=== PATIENT | female | born 1975 | race Caucasian/White ===

== ENCOUNTER 2021-06-03 13:38 | Emergency (ER) | payer OTHER, SELFPAY ==
--- NOTE | ~2021-06-03 | XR_ITS ---
EXAMINATION: XR wrist RT min 3V DATE: 06/03/2021 14:12 INDICATION: Ulnar-sided right wrist pain post injury TECHNIQUE: Posteroanterior, ulnar deviation, oblique, and lateral views of the right wrist were obtai ernst. COMPARISON: 12/21/2009 FINDINGS: 1-2 mm ulnar positive variance. Alignment is otherwise normal. No fracture. Joint spaces are normal. Soft tissues are unremarkable. IMPRESSION: 1. No acute osseous abnormality. Reviewed, dictated and finalized at location A.
[2021-06-03 13:50] VITALS: BP 142/90; PULSE 101; RESP 20; TEMP 36.7; O2SAT 97
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
== END 2021-06-03 14:46 | disposition home or self-care (01) ==
PROVIDERS: Emergency Provider Nurse Practitioner
DX: S29.012A Strain of muscle and tendon of back wall of thorax, initial encounter (principal); Y04.0XXA Assault by unarmed brawl or fight, initial encounter; S63.501A Unspecified sprain of right wrist, initial encounter; K21.9 Gastro-esophageal reflux disease without esophagitis
CPT/HCPCS: 73110; 99213; G0463

== ENCOUNTER 2021-08-17 10:14 | Outpatient (CLI) | payer OTHER, SELFPAY ==
--- NOTE | ~2021-08-17 | MM_ITS ---
EXAMINATION: MM screening jeremias BI w juan carlos HISTORY: Screening mammogram TECHNIQUE: Craniocaudal and mediolateral oblique 3-D tomosynthesis images were obtained and synthetic 2-D images were generated. CAD analysis was submitted and interpreted. COMPARISON: No prior mammogram is available for comparison at this institution. BREAST PARENCHYMAL COMPOSITION: There are scattered areas of fibroglandular density. FINDINGS: There is no evidence of suspicious mass, calcification, or architectural distortion to sugg est malignancy in either breast. There has been no suspicious interval change. IMPRESSION: 1. No mammographic evidence of malignancy. 2. Recommend routine screening mammography in one year. BI-RADS Category 1: Negative Reviewed, dictated and finalized at location A. ATIENT ADMITTING CLERK
== END 2021-08-17 10:15 | disposition home or self-care (01) ==
LOC: ANHIMG 10:16
PROVIDERS: PCP Family Medicine; Visit Provider Obstetrics & Gynecology
DX: Z12.31 Encounter for screening mammogram for malignant neoplasm of breast (principal)
CPT/HCPCS: 77063; 77067

== ENCOUNTER 2022-11-14 16:13 | Outpatient (CLI) | payer OTHER, SELFPAY ==
--- NOTE | ~2022-11-14 | MM_ITS ---
EXAMINATION: MM screening jeremias BI w juan carlos HISTORY: Screening mammogram TECHNIQUE: Craniocaudal and mediolateral oblique 3-D tomosynthesis images were obtained and synthetic 2-D images were generated. CAD analysis was submitted and interpreted. COMPARISON: 08/17/2021 bilateral screening mammogram BREAST PARENCHYMAL COMPOSITION: There are scattered areas of fibroglandular density. FINDINGS: There is no evidence of suspicious mass, calcification, or architectural distortion to sugg est malignancy in either breast. There has been no suspicious interval change. IMPRESSION: 1. No mammographic evidence of malignancy. 2. Recommend routine screening mammography in one year. BI-RADS Category 1: Negative Reviewed, dictated and finalized at location A.
== END 2022-11-14 16:14 | disposition home or self-care (01) ==
PROVIDERS: PCP Family Medicine; Visit Provider Obstetrics & Gynecology
DX: Z12.31 Encounter for screening mammogram for malignant neoplasm of breast (principal)
CPT/HCPCS: 77063; 77067

== ENCOUNTER 2024-01-10 08:18 | Outpatient (CLI) | payer OTHER, SELFPAY ==
--- NOTE | ~2024-01-10 | MM_ITS ---
EXAMINATION: MM screening jeremias BI w juan carlos HISTORY: Screening mammogram TECHNIQUE: Craniocaudal and mediolateral oblique 3-D tomosynthesis images were obtained and synthetic 2-D images were generated. CAD analysis was submitted and interpreted. COMPARISON: 11/14/2022, 08/17/2021 bilateral screening mammogram examinations BREAST PARENCHYMAL COMPOSITION: There are scattered areas of fibroglandular density. FINDINGS: There is no evidence of suspicious mass, calcification, or architectural distortion to sugg est malignancy in either breast. There has been no suspicious interval change. IMPRESSION: 1. No mammographic evidence of malignancy. 2. Recommend routine screening mammography in one year. BI-RADS Category 1: Negative Reviewed, dictated and finalized at location B.
== END 2024-01-10 08:19 | disposition home or self-care (01) ==
PROVIDERS: PCP Family Medicine; Visit Provider Obstetrics & Gynecology
DX: Z12.31 Encounter for screening mammogram for malignant neoplasm of breast (principal)
CPT/HCPCS: 77063; 77067

== ENCOUNTER 2024-11-26 16:00 | Outpatient (RCR) | payer OTHER, SELFPAY ==
--- NOTE | 2024-10-20 15:29 | OPREHPOC ---
Outpatient Therapy Plan of Care This is a Multidisciplinary Plan of Care that may contain components documented by all disciplines (PT, OT, and ST.) PT Problem 1 PT Problem #1 Knowledge Deficit PT Goal 1 Goal / Goal Update 1. Patient will perform independent HEP Target Visit 3 PT Problem 2 PT Problem #2 Pain PT Goal 1 Goal / Goal Update 1. No pain reported on pelvic exam 2. Pain no higher than 2/10 with prolonged sitting Target Visit 5 PT Problem 3 PT Problem #3 Impaired Strength PT Goal 1 Goal / Goal Update 1. Pelvic floor strength 4/5 to reduce incontinence 2. Pelvic floor endurance to 10 seconds to reduce incontinence Target Visit 5 PT Problem 4 PT Problem #4 Impaired Functional ADLs PT Goal 1 Goal / Goal Update 1. Patient will report no incontinence for 1 month Target Visit 5
--- NOTE | 2024-10-20 15:29 | PTOPEVAL1 ---
Assessment and note entered by Savanah Wolff DPT Evaluation Information Assessment Status Evaluation ICD-10 Condition Codes (PT) Weakness R53.1,Pelvic and perineal pain R10.2, Stress incontinence N39.3 Subjective Information Pt reports pelvic pain and cramping. Some radiating anteriorly. Has happened on and off over the years but is now worsening, patient wakes up at night from pain and it makes her feel that she has to void. Highest 8-9/10 and lowest 0/10. Tries ice and massage for pain. Somewhat unsure but thinks prolonged sitting increases her pain. Voids 4 times a day and 0-1 times at night. 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 Can hold urge to void up to 30 minutes. Denies pain with urination . BM 2 times a day, fecal incontinence once a month. Sometimes has pain with BM as well. No previous pain with pap smear or tampon. Pt has been 2 times, 2 vaginal deliveries. Minor tearing with both. 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 Returns to [place] in July. Pt has diabetes. Patient goal: see why I'm having pain Reported Pain Level Pain Score 0: Self Report Assessment PT Clinical Summary The patient is presenting to skilled therapy with pelvic pain and infrequent urinary/fecal incontinence. She presents with pain with palpation of pelvic floor and ischial tuberosity, decreased pelvic floor strength and endurance, and decreased abdominal strength which are contributing to her pain and incontinence. She will highly benefit from skilled therapy to address these impairments in order to safely return to prior level of function. Plan of Care Interventions Electrical Stimulation,Gait Training,Hot Pack/Cold Pack,Manual Therapy,Neuro Re-education,Patient/ Caregiver Education,Therapeutic Activities, Therapeutic Exercise PT Services Indicated Yes Treatment Frequency and 1 time a week for 5 weeks Duration These treatments will address the objective and functional deficits as defined above. The patient will be advanced safely and appropriately in order for the patient to progress towards his/her prior level of function. Additional exercises will be introduced and as well as a comprehensive home exercise program upon discharge, if needed, ?to ensure carryover of functional gains achieved in the clinic. This treatment plan has been reviewed and agreement upon by the patient.
--- NOTE | 2024-11-26 16:28 | OPREHPOC ---
Outpatient Therapy Plan of Care This is a Multidisciplinary Plan of Care that may contain components documented by all disciplines (PT, OT, and ST.) PT Problem 1 PT Problem #1 Knowledge Deficit PT Goal 1 Goal / Goal Update 1. Patient will perform independent HEP Target Visit 3 Progress Met PT Problem 2 PT Problem #2 Pain PT Goal 1 Goal / Goal Update 1. No pain reported on pelvic exam 2. Pain no higher than 2/10 with prolonged sitting Target Visit 5 Progress Met PT Problem 3 PT Problem #3 Impaired Strength PT Goal 1 Goal / Goal Update 1. Pelvic floor strength 4/5 to reduce incontinence 2. Pelvic floor endurance to 10 seconds to reduce incontinence update 11/26/24 1. met 2. improved to 5 Target Visit 5 Progress Partially Met PT Problem 4 PT Problem #4 Impaired Functional ADLs PT Goal 1 Goal / Goal Update 1. Patient will report no incontinence for 1 month update 11/26/24 1. patient does not remember last instance Target Visit 5 Progress Partially Met
--- NOTE | 2024-11-26 16:28 | PTOPPROGNS ---
Assessment and note entered by Savanah Wolff DPT Evaluation Information Assessment Status Progress ICD-10 Condition Codes (PT) Weakness R53.1,Pelvic and perineal pain R10.2, Stress incontinence N39.3 Subjective Information Pt reports she feels better with therapy. Pt reports no pain since October. Cannot remember any recent urinary incontinence. Voiding 7 times a day, sometimes wakes up 1 time. Assessment PT Clinical Summary The patient has made excellent progress in therapy . She reports no pain for over a month and no recent urinary incontinence. She demonstrates improved pelvic floor strength and endurance, as well as no pain with palpation of pelvic floor or L ischial tuberosity. Mild pain only to R ischial tuberosity. Due to patient's progress, tentative discharge is recommended at this time. She has been educated in thorough HEP and to follow up with PT and/or MD as needed. Plan of Care Interventions Electrical Stimulation,Gait Training,Hot Pack/Cold Pack,Manual Therapy,Neuro Re-education,Patient/ Caregiver Education,Therapeutic Activities, Therapeutic Exercise PT Services Indicated No Treatment Frequency and patient to call if pain increases in the next Duration month otherwise case will be discharged These treatments will address the objective and functional deficits as defined above. The patient will be advanced safely and appropriately in order for the patient to progress towards his/her prior level of function. Additional exercises will be introduced and as well as a comprehensive home exercise program upon discharge, if needed, ?to ensure carryover of functional gains achieved in the clinic. This treatment plan has been reviewed and agreement upon by the patient.
--- NOTE | 2024-12-29 11:34 | PTOPDC ---
Assessment and note entered by Savanah Wolff DPT Evaluation Information Assessment Status Discharge - Pt Not Present ICD-10 Condition Codes (PT) Weakness R53.1,Pelvic and perineal pain R10.2, Stress incontinence N39.3 Subjective Information - Assessment PT Clinical Summary Patient has not needed to schedule further visits- her case will be discharged this date. Plan of Care PT Services Indicated No
== END 2024-12-29 15:23 | disposition home or self-care (01) ==
LOC: ANHPT 16:00
PROVIDERS: PCP Family Medicine; Visit Provider Obstetrics & Gynecology
DX: N81.89 Other female genital prolapse (principal); R10.2 Pelvic and perineal pain
CPT/HCPCS: 97110; 97112; 97140; 97161; 97530

== ENCOUNTER 2025-03-10 14:49 | Outpatient (CLI) | payer OTHER, SELFPAY ==
--- NOTE | ~2025-03-10 | MM_ITS ---
EXAMINATION: MM screening jeremias BI w juan carlos HISTORY: Screening TECHNIQUE: Craniocaudal and mediolateral oblique 3-D tomosynthesis images were obtained and synthetic 2-D images were generated. CAD analysis was submitted and interpreted. COMPARISON: No prior mammogram is available for comparison at this institution. BREAST PARENCHYMAL COMPOSITION: Not dense: There are scattered areas of fibroglandular density. FINDINGS: There is no evidence of suspicious mass, calcification, or architectural distortion to sugg est malignancy in either breast. There has been no suspicious interval change. IMPRESSION: 1. No mammographic evidence of malignancy. 2. Recommend routine screening mammography in one year. BI-RADS Category 1: Negative Reviewed, dictated and finalized at location A.
--- OUTSIDE RECORDS SUMMARY | 2025-03-10 14:53 | XMS_ITS | Encounter Summary ---
Author Organization [facility] Facility Care Team Providers Care Thermocouple Tester Name Role Phone Boby Adams MD Primary Care Provid er Unknown, Notinfile Primary Care Provider Unavail able Boby Adams MD Primary Care Provid er Dyan Cruz Primary Care Provider [phone] Encounter Details Date Type Department Care Team (Latest Contact Info) Description 10/30/2017 Orders Only [facility] Provider, MD Nasrin [address] [place] [id number] Social History Tobacco Use Types Packs/Day Years Used Date Smoking Tobacco: Never Assessed Comments Unknown Sex and Gender Information Value Date Recorded Sex Assigned at Not on file Legal 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 Historical Provider Final Res ult documented in this encounter Visit Diagnoses Not on filedocumented in this encounter Additional Health Concerns Infection Onset Date Last Indicated Resolved Time COVID: Suspected 03/17/2021 03/17/2021 03/17/2021 10:59 PM CDT COVID19 03/17/2021 03/17/2021 03/31/2021 3:05 AM CDT COVID: Recovered Comment:Added based on recent COVID infection. 03/31/2021 04/04/2021 07/29/2021 3:[address] COVID: Suspected 07/09/2022 07/09/2022 07/09/2022 11:30 AM BULL WHEEL WORKER COVID: Suspected 08/09/2022 08/09/2022 08/09/2022 8:53 AM BULL WHEEL WORKER Influenza, adult 08/09/2022 08/09/2022 08/16/2022 3:05 AM BULL WHEEL WORKER COVID: Suspected 05/22/2023 05/22/2023 05/22/2023 4:19 PM CDT COVID19 05/22/2023 05/22/2023 06/01/2023 3:07 AM CDT COVID: Recovered Comment:Added based on recent COVID infection. 06/01/2023 07/11/2023 08/30/2023 3:[address] COVID: Suspected 07/16/2023 07/16/2023 07/16/2023 6:05 PM BULL WHEEL WORKER COVID: Suspected 07/16/2023 07/16/2023 07/17/2023 3:05 AM BULL WHEEL WORKER COVID: Suspected 07/16/2023 07/16/2023 07/17/2023 11:36 AM BULL WHEEL WORKER documented as of this encounter Care Teams Thermocouple Tester Relationship Specialty Start Date End Date Boby Adams MD [address] [place] [address] PCP - General 10/23/17 11/01/17 Unknown, Notinfile PCP - General 11/02/17 12/30/17 Boby Adams MD [address] [place] [address] PCP - General Family Medicine 12/31/17 10/28/24 Dyan Cruz PA [address] [place] [address] PCP - General Family Medicine 10/29/24 documented as of this encounter
--- OUTSIDE RECORDS SUMMARY | 2025-03-10 14:53 | XMS_ITS | Clinical Summary ---
Author Organization [facility] Address [facility] [place] [address] Care Team Providers Care Tool Grinder Operator Name Role Phone Dyan Cruz Primary Care Provider [phone] Allergies No known active allergies Medications FreeStyle Lite Meter kit TEST EVERY MORNING AND EVENING DIRECTED 1 Active freestyle 28 gauge lancets Test bid 100 each 11 2 Active Mirena IUD 2 Active lidocaine (LIDODERM) 5 %Indications:Acut e right-sided thoracic back pain Place 1 patch on the skin daily Apply to painful area 12 hours per day, remove for 12 hours. 30 patch 3 Active Flonase Allergy Relief 50 mcg/actuation nasal spray Administer 2 sprays into each nostril daily 3 Active MULTIVITAMIN ORAL Take by mouth Active FreeStyle Lite Strips strip USE TO TEST TWICE A DAY 100 strip 1 4 Active buPROPion XL (WELLBUTRIN XL) 150 mg 24 hr tablet TAKE 1 TABLET EVERY MORNING 90 tablet 3 5 Active metFORMIN XR (GLUCOPHAGE XR) 500 mg 24 hr tabletIndications :Uncontrolled type 2 diabetes mellitus with hyperglycemia (HCC) Take 1 tablet (500 mg total) by mouth daily with dinner 90 tablet 3 5 Active Jardiance 10 mg tablet TAKE 1 TABLET DAILY 90 tablet 3 5 Active Active Problems Problem Noted Date Diagnosed Date Herniated lumbar intervertebral disc 12/31/2024 Overview (12/31/2024): MRI requested from [facility]. Rx Motrin 800mg tid #45 RF1. Avoid prolonged activities - sitting, standing, etc. F/u with PCM @ [facility]. KEVIN (generalized anxiety disorder) 11/11/2024 Assessment & Plan (12/31/2024 8:25 AM CDT): Chronic and controlled. Continue Wellbutrin. Assessment & Plan (11/11/2024 8:30 AM CDT): Routine adult health maintenance 11/10/2024 Overview (01/16/2025): Health Maintenance: -PCV20: 07/13/2023 -Tdap vaccine: 2022 -Influenza vaccine: due -Shingles vaccine: 12/11/24 -Colonoscopy: 03/14/2022 (3 year recall), scheduled with GI Dr. Yusuf [facility]: 07/10/2022 -Last Mammogram: 01/10/2024, scheduled at [facility] -Last DEXA: N/A -Last eye exam: 01/13/25 -Last MHA: N/A Assessment & Plan (12/31/2024 8:26 AM CDT): Health Maintenance: -PCV20: 07/13/2023 -Tdap vaccine: 2022 -Influenza vaccine: due in Fall -Shingles vaccine: 12/11/24 -Colonoscopy: 03/14/2022 (3 year recall), scheduled with [facility]: 07/10/2022 -Last Mammogram: 01/10/2024, scheduled at [facility] -Last DEXA: N/A -Last eye exam: scheduled -Last MHA: N/A First dose of Shingrix administered today. She has her mammogram, colonoscopy, eye exam all scheduled. Labs reviewed today. BMI 28.0-28.9,adult 07/13/2023 Assessment & Plan (07/13/2023 8:01 AM LNA): Encouraged to restart regular exercise routine. Continue healthy diet. Controlled type 2 diabetes m ellitus without complication, without long-term current use of insulin 08/24/2022 Assessment & Plan (12/31/2024 8:25 AM CDT): I reviewed and discussed labs with the patient today. Most recent A1c: 6.4 Will check urine microalbumin annually. Patient not currently on a statin. Discussed LDL goal of under 70. She will work on lifestyle measures to improve LDL, currently at 84. Will recheck and discuss starting statin if not at goal. Patient not currently on MELINDA inhibitor or Arb. Will discuss at a follow-up visit. Recommend baby aspirin daily, 81mg. BP Goal < 130/85. Due to side effects, will decrease metformin to once daily in the evening. Continue Jardiance as prescribed. Diabetic eye exam annually. Monofilament foot exam annually. Check feet daily for ulcers/lesion/sores. Check blood sugars daily (fasting in am and 2 hrs after meal as needed). Goals fasting < 110-120. 2 hrs after meals < 140-160. Encourage healthy, low carbohydrate diet and CV exercise five times a week for 30 mins recommended. Rchehck A1c in 3 months. RTC 6 months. Assessment & Plan (11/11/2024 8:30 AM CDT): Assessment & Plan (07/13/2023 8:00 AM LNA): Chronic. Controlled A1c at goal of less than 7. Blood sugars have increased slightly. Advised patient to continue monitoring and notify for persistent fasting blood sugars above 130 or 2 hour postprandial blood sugars above 150. - continue metformin 500 twice daily and Jardiance 10 mg daily - schedule annual appointment with Dr. Admas and have A1c checked - continue to keep log until annual appointment Cervical pain (neck) 05/29/2017 Resolved Problems Problem Noted Date Diagnosed Date Resolved Date Uncontrolled type 2 diabetes mellitus with hyperglycemia 01/01/2023 11/10/2024 Recurrent major depressive d isorder, in full remission 09/25/2022 11/11/2024 Cervical disc disorder with radiculopathy 05/31/2017 09/09/2018 Encounters Date Type Department Care Team Description 01/05/2025 Results Follow-Up [facility] Family Medicine [address] [place] [phone] Dyan Cruz PA Extra Specimen, CFVANTAGE(R) CYSTIC FIBROSIS EXPANDED SCR Blood 12/31/2024 7:30 AM CDT Office Visit [facility] Family Medicine [address] [phone] Dyan Cruz PA Routine adult health maintenance (Primary Dx); Controlled type 2 diabetes mellitus without complication, without long-term current use of insulin (HCC); KEVIN (generalized anxiety disorder); Screening for cystic fibrosis; Need for vaccination; Viral wart on finger from Last 3 Months Immunizations Immunization Administration Dates Next Due COVID-19 MRNA (MODERNA) .5 M L (50 MCG) VACCINE (12 YEARS AND UP) 06/18/2023 Hep A, Adult 02/16/2004 Influenza LAIV (Nasal) 06/26/2014,06/20/2013 Influenza, Quadrivalent, Malorie l Culture-based MDCK, Preservative Free, Antibiotic Free, Intramuscular 06/18/2023 Influenza, Quadrivalent, Spl it, Preservative Free, Intramuscular 08/14/2021,08/13/2020,09/13/2019,07/24,06/28/2015 Influenza, Split 07/23/2010 Influenza, Trivalent, Cell Culture-based MDCK, Preservative Free, Antibiotic Free, Intramuscular 07/07/2017 Influenza, Trivalent, Preser vative Free, Intramuscular 06/03/2024,06/03/2017,08/08/2016 Influenza, Unspecified 08/24/2022(Deferr ed: Patient Refused),08/09/2022(Deferred: Patient Refused),07/11/2022(Deferred: Patient Refused),06/03/2022,06/03/2022(Deferre d: Patient Refused),08/03/2021 Influenza, Whole 08/04/2003 MMR 01/23/2018,04/07/2014 Moderna SARS-CoV-2 Monovalen t Vaccination (12+ YRS) 10/03/2021,11/12/2020,10/15/2020 PPD TEST 02/16/2004 Pneumococcal Conjugate Pcv20 07/13/2023 Td, adsorbed 02/16/2004 Tdap 04/03/2023, 2(Deferred: Patient Refused),04/07/2014 Typhoid Inactivated 01/23/2018 ZOSTER Recombinant 12/31/2024 Surgical History Surgery Date Site/Laterality Comments LUMBAR FUSION Arthrodesis Lumbar - (Added by TW Conv) CO CHOLECYSTECTOMY Cholecystectomy - (Added by TW Conv) CO APPENDECTOMY Appendectomy - (Added by TW Conv) Medical History Medical History Date Comments Cervical pain (neck) 05/29/2017 Diabetes mellitus (HCC) Anxiety Family History Medical History Relation Name Comments Cancer Father Richardson Cancer Maternal Grandfather Grandfather Cancer - Relation: Grandfather (Added by TW Conv) Diabetes Maternal Grandfather Grandfather Diabete s Mellitus - Relation: Grandfather (Added by TW Conv) Arthritis Mother Karime Cancer Mother Karime Diabetes Mother Karime Diabetes Mellit us - (Added by TW Conv) Hypertension Mother Karime Heart attack Mother's Sister Aunt Michelle Diabetes Other Diabetes Mellit us - Relation: Grandmother (Added by TW Conv) Relation Name Status Comments Father Richardson Maternal Grandfather Grandfather Mother Karime Mother's Sister Aunt Michelle Other Social History Tobacco Use Types Packs/Day Years Used Date Smoking Tobacco: Never Smokeless Tobacco: Never Tobacco Cessation:Counseling Given: Not Answered Alcohol Use Standard Drinks/Week Comments No 0 (1 standard drink = 0.6 oz pur e alcohol) AUDIT-C Answer Date Recorded Q1: How often do you have a drink containing alc ohol? Monthly or less 08/31/2023 Q2: How many drinks containi ng alcohol do you have on a typical day when you are drinking? 1 or 2 08/31/2023 Q3: How often do you have si x or more drinks on one occasion? Never 08/31/2023 PHQ-2 Answer Date Recorded PHQ-2 Total Score (If total score is 3 or more points, staff should administer the PHQ-9) 0 12/31/2024 PHQ-9 Answer Date Recorded PHQ-9 Total Score 0 12/31/2024 Comments No Sex and Gender Information Value Date Recorded Sex Assigned at Not on file Legal Sex Female 1:55 AM LNA Gender Identity Female 08/11/2021 12:08 PM LNA Sexual Orientation Straight 08/11/2021 12 :08 PM LNA Occupation Industry Job Start Date Job End Date teacher Not on file Not on file Not on file Obstetrics History Last Filed Vital Signs Vital Sign Reading Time Taken Comments Blood Pressure 126/78 12/31/2024 7:33 AM CDT Pulse 90 12/31/2024 7:33 AM CDT Temperature 36.6 C (97.9 F) 12/31/2024 7:33 AM CDT Respiratory Rate 18 12/31/2024 7:33 AM CDT Oxygen Saturation 99% 12/31/2024 7:33 AM CDT Inhaled Oxygen Concentration - - Weight 85.7 kg (189 lb) 12/31/2024 7:33 AM CDT Height 175.3 cm (5' 9) 12/31/2024 7:33 AM CDT Body Mass Index 27.91 12/31/2024 7:33 AM CDT Plan of Treatment Health Maintenance Due Date Last Done Comments Hepatitis C Screening 1975 Hepatitis B Screening 1991 Covid-19 Vaccine (2023- 5 season) 2024 06/18/2023, 10/03/2021, 11/12/2020, Additional history exists Breast Cancer Screening-Mammogram 01/09/2025 01/10/2024, 11/14/2022, 08/17/2021, Additional history exists Zoster Vaccine (2 of 2) 02/25/2025 12/31/2024 Colon Cancer Screening-Colonoscopy 03/14/20252021, 04/09/2018 Influenza Vaccine (#1) 2025 , 06/18/2023, 06/03/2022, Additional history exists Hemoglobin A1C 05/11/2025 11/08/2024, 08/0 03/2024, 10/06/2023, Additional history exists Albumin Creatinine Ratio, Urine 11/08/2025 11/08/2024, 10/06/2023, 02/10/2023, Additional history exists Lipid Panel 11/08/2025 11/08/2024, 02/0 11/2023, 02/10/2023, Additional history exists eGFR 11/08/2025 11/08/2024, 02/0 11/2023, 07/09/2022, Additional history exists Depression Screening 12/31/2025 12/31/2024, 12/31/2024, 11/11/2024, Additional history exists Foot Exam 12/31/2025 12/31/2024, 08/04, 08/31/2023, Additional history exists Regular Well Visit/Exam 18-64 12/31/2025, 08/31/2023, 08/24/2022, Additional history exists Dilated Eye Exam 01/13/2026 01/13/2025, 09/2022, 04/06/2022, Additional history exists Cervical Cancer Screening 07/10/2027 07/10/2022 DTaP/Tdap/Td Vaccine (3 - Td or Tdap) 04/03/2033 04/03/2023, 04/07/2014, 02/16/2004 Pneumococcal vaccine <65 Completed 07/13/2023 Medical Devices Implanted Type Area Termite Inspector Device Identifier Shelf Expiration Date Model / Serial / Lot Fusion Spine Cervical Procedures Procedure Name Priority Date/Time Associated Diagnosis Comments HM DIABETES EYE EXAM Routine 01/13/2025 2:42 PM CDT EXTRA SPECIMEN Routine 01/12/2025 1:08 PM CDT CFVANTAGE(R) CYSTIC FIBROSIS EXPANDED SCR Routine 01/12/2025 1:08 PM CDT Screening for cystic fibrosis EGFR Routine 11/08/2024 9:32 AM LNA Controlled type 2 diabetes mellitus without complication, without long-term current use of insulin (HCC) HEMOGLOBIN A1C Routine 11/08/2024 9:32 AM LNA Controlled type 2 diabetes mellitus without complication, without long-term current use of insulin (HCC) LIPID PANEL Routine 11/08/2024 9:32 AM LNA Controlled type 2 diabetes mellitus without complication, without long-term current use of insulin (HCC) ALBUMIN CREATININE RATIO, URINE Routine 11/08/2024 9:32 AM LNA Controlled type 2 diabetes mellitus without complication, without long-term current use of insulin (HCC) MAMMOGRAPHY Routine 01/10/2024 PAP SMEAR WITH HPV Routine 07/10/2022 COLONOSCOPY Routine 03/14/2022 4:00 PM CDT from Last 3 Months or Most Recently Relevant to Health Maintenance Results * DIABETES EYE EXAM (01/13/2025 2:42 PM CDT) SCRIBED DIABETIC DILATED EYE EXAM Normal us Historical Provider MD HEALTH MAINTENANCE Final Result * Extra Specimen (01/12/2025 1:08 PM CDT) Extra Tube Received [facility] Comment: An extra specimen was received with no test requested. The specimen will be maintained in storage in case additional testing is needed. Please call the client service department for further assistance. Specimen Type Received 2Serum Separator (SST) [facility] Comment: NO COLLECTION DATE RECEIVED. WE HAVE USED THE DATE THE SPECIMEN WAS RECEIVED BY THIS LABORATORY THE COLLECTION DATE. IF THIS IS INCORRECT, PLEASE CONTACT CLIENT SERVICES. PHONE NUMBER: [phone] 01/04/2025 4:2 3 AM CDT Dyan MINOR LAB BLOOD ORDERABLES Diana l Result [facility] [id number] [place] [address] * (ABNORMAL) CFVANTAGE(R) CYSTIC FIBROSIS EXPANDED SCR Blood (01/12/2025 1:08 PM CDT) Tumor type drugs #8 NG [facility], Clinical trials #6 POSITIVE( A) [facility], Comment:HETEROZYGOUS FOR THE delta F508 MUTATION test, interpretation SEE NOTE [facility], Comment: This individual has one copy of a cystic fibrosis (CF) mutation, consistent with being an unaffected CF carrier. This specimen is negative for the other CF mutations tested.* This result does not rule out a diagnosis of CF. The risk for mutations that cause CF other than the ones tested depends greatly on family history, clinical presentation, and ethnicity. Laboratory results and submitted clinical information reviewed by Jeremiah Thomas, PhD. [facility]. test, additional SEE NOTE [facility], Comment: This assay detects the CF mutations listed below, including the twenty-three core mutations recommended by the [place] [employer] (ACMG) and the [place] [employer] of Obstetricians and Gynecologists (ACOG) for population-based CF carrier screening. While the additional mutations detected in this assay are rare in the general [place] population, the scientific and medical literature indicates that these mutations are associated with CF (Ruthie Beatrice, 2013, 45:1160-7) and may have increased prevalence in some ethnic groups (Clin Chem, 57:841-8). The status of the intron 9 (formerly intron 8) polyT tract is reported only when the R117H mutation is detected. The mutations are detected by multiplex-polymerase chain reaction (PCR) amplification of specific CF gene regions, followed by nucleotide sequence analysis on a massively parallel sequencing platform. Although rare, false positive or false negative results may occur. All results should be interpreted in the context of clinical findings, relevant history, and other laboratory data. Health care providers, please contact your local [facility] genetic counselor or call at [facility] ([phone]) for assistance with interpretation of these results. DIAGNOSIS: SEE NOTE [facility], Comment: M1V (c.1A>G), CFTRdele2,3, Q39X (c.115C>T), 296+2T>A (c.164+2T>A), E60X (c.178G>T), P67L (c.200C>T), R75X (c.223C>T), G85E (c.254G>A), 394delTT (c.262delTT), G91R (c.271G>A), 405+1G>A (c.273+1G>A), 406-1G>A (c.274-1G>A), E92K (c.274G>A), E92X (c.274G>T), Q98X (c.292C>T), 444delA (c.313delA), 457TAT>G (c.325delTATinsG), D110H (c.328G>C), R117C (c.349C>T), R117H (c.350G>A), Y122X (c.366T>A), 574delA (c.442delA), 621+1G>T (c.489+1G>T), 663delT (c.531delT), G178R (c.532G>A), 711+1G>T (c.579+1G>T), 711+3A>G (c.579+3A>G), 711+5G>A (c.579+5G>A), 712-1G>T (c.580-1G>T), H199Y (c.595C>T), P205S (c.613C>T), L206W (c.617T>G), Q220X (c.658C>T), 519dnx47 (c.883ceg23), 935delA (c.803delA), 936delTA (c.805delAT), Q670efy (c.933delCTT), 1078delT (c.948delT), G330X (c.988G>T), R334W (c.1000C>T), I336K (c.1007T>A), T338I (c.1013C>T), S341P (c.1021T>C), 1154insTC (c.1022insTC), 1161delC (c.1029delC), R347P (c.1040G>C), R347H (c.1040G>A), R352Q (c.1055G>A), 1213delT (c.1081delT), 1248+1G>A (c.1116+1G>A), 1259insA (c.1127insA), 1288insTA (c.1153insAT), W401X (c.1202G>A or c.1203G>A), 1341+1G>A (c.1209+1G>A), 5671clk9 (c.1329insAGAT), A455E (c.1364C>A), 1525-1G>A (c.1393-1G>A), S466X (c.1397C>A or c.1397C>G), L467P (c.1400T>C), 1548delG (c.1418delG), G480C (c.1438G>T), S489X (c.1466C>A), S492F (c.1475C>T), 1609delCA (c.1477delCA), Q493X (c.1477C>T), I183acy (c.1519delATC), O600xaw (c.1521delCTT), 1677delTA (c.1545delTA), V520F (c.1558G>T), C524X (c.1572C>A), Q525X (c.1573C>T), 1717-1G>A (c.1585-1G>A), 1717-8G>A (c.1585-8G>A), G542X (c.1624G>T), S549R (c.1645A>C or c.1647T>G), S549N (c.1646G>A), G551D (c.1652G>A), Q552X (c.1654C>T), R553X (c.1657C>T), A559T (c.1675G>A), R560K (c.1679G>A), R560T (c.1679G>C), 1811+1.6kbA>G (c.1679+1.6kbA>G), 1812-1G>A (c.1680-1G>A), P574H (c.1721C>A), D579G (c.1736A>G), E585X (c.1753G>T), 1898+1G>T(c.1766+1G>T), 1898+1G>A (c.1766+1G>A), 1898+3A>G (c.1766+3A>G), 1898+5G>T (c.1766+5G>T), 2043delG (c.1911delG), 5462nvw7>A (c.1382erc2wtsY),7193wqj18qct5 (c.7861epx39jwvRLVMF), 2108delA (c.1975delA), 2143delT (c.2011delT), 2183AA>G (c.2051delAAinsG), 2184insA (c.205insA), 2184delA(c.2052delA), R709X (c.2125C>T), K710X (c.2128A>T), 2307insA (c.2175insA),L732X (c.2195T>G), 2347delG (c.2215delG), R764X (c.2290C>T), 2585delT (c.2453delT), E822X (c.2464G>T), 2622+1G>A (c.2490+1G>A), E831X (c.2491G>T),W846X (c.2537G>A or c.2538G>A), R851X (c.2551C>T), 2711delT (c.2583delT), 2789+5G>A (c.2657+5G>A), Q890X (c.2668C>T), 2869insG (c.2737insG), L927P (c.2780T>C), S945L (c.2834C>T), 3007delG (c.2875delG), G970R (c.2908G>C), 3120G>A(c.2988G>A), 3120+1G>A (c.2988+1G>A), 3121-1G>A (c.2989-1G>A), 3171delC (c.3039delC), 0822zha7 (c.3067delATAGTG), 3272-26A>G (c.3140-26A>G), Z3758M (c.3194T>C), O3634D (c.3196C>T), Y3968J (c.3197G>A), U8535V (c.3230T>C), Z3762R (c.3266G>A), F1730D (c.3276C>A or c.3276C>G), A6842G (c.3278T>C), L9768L (c.33 2T>A), N2473S (c.3310G>T), S9109W (c.3382A>T), O4803C (c.3435G>A), P8507H (c.3472C>T), S2033D (c.3484C>T), 3659delC (c.3528delC), 4696xpm6 (c.3535delACCA), C8769C (c.3587C>G), T1503E (c.3611G>A or c.3612G>A), 3791delC (c.3659delC), 3821delT (c.3691delT), U3941Q (c.3700A>G), H6940R (c.3712C>T), 3849+10kbC>T (c.3717+36980J>T), O1963X (c.3731G>A),3876delA (c.3744delA), T7854A (c.3752G>A), F5492W (c.3764C>A), 3905insT (c.3773insT), D2251V (c.3846G>A), M0153N (c.3848G>T), 4005+1G>A (c.3873+1G>A), 4016insT (c.3884insT), W1705U (c.3909C>G), G9184U (c.3937C>T), FFYFgsvb47,23, 4209TGTT>AA (c.4077delTGTTinsAA), 4382delA (c.4251d lA) This test was developed and its analytical performance characteristics have been determined by [facility]. It has not been cleared or approved by the FDA. This assay has been validated pursuant to the CLIA regulations and is used for clinical purposes. For additional information, please refer to http://education.[employer].Pythian/faq/BQF030 (This link is being provided for information/educational purposes only.) Blood 01/04/2025 4:2 3 AM CDT Dyan [facility] LAB MICROBIOLOGY - [facility] L ORDERABLES Final Result [facility], [address] [place] [address] * eGFR (11/08/2024 9:32 AM LNA) eGFR >90 >=60 mL/min/1. 73 m2 Comment: Interpretive Data Reference Interval Normal >/= 90 mL/min/1.73m2 Mildly decreased* 60 - 89 mL/min/1.73m2 Mildly to moderately decreased 45 - 59 mL/min/1.73m2 Moderately to severely decreased 30 - 44 mL/min/1.73m2 Severely decreased 15 - 29 mL/min/1.73m2 Kidney Failure < 15 mL/min/1.73m2 *Relative to young adult level Estimated glomerular filtration rate is determined by the 2020 CKD-EPI equation recommended by the National Kidney Foundation (A Unifying Approach to GFR Estimation: Recommendations of the NKF-ASK Task Force on Reassessing the Inclusion of Race in Diagnosing Kidney Disease, JASN 2020). The CKD-EPI equation should not be used for patients with unstable renal function and has not been validated in children and those over 70. Current interpretive data was last reviewed 2021. Testing performed by: [address] [address] Blood 11/08/2024 9:32 AM LNA 11/08/2024 11:51 AM LNA Dyan MIN[facility] LAB BLOOD ORDERABLES Diana l Result Performing Organization Address [facility] Co de Phone Number [address] [place] [address] * Albumin Creatinine Ratio, Urine (11/08/2024 9:32 AM LNA) Albumin Ur <12.0 mg/L Comment: Interpretive Data No reference range established. Current interpretive data was last revised 2019. Testing performed by: [address] [address] Creatinine Ur 116.0 mg/dL ARIANNA Comment: Interpretive Data No reference range established. Current interpretive data was last revised 2019. Testing performed by: [address] [address] Albumin Creatinine Ratio, Ur <10 1 - 29 mg/g ARIANNA Comment:Testing performed by : [address] [address] Urine 11/08/2024 9:32 AM LNA 11/08/2024 10:09 AM LNA Dyan [facility] LAB URINE ORDERABLES Diana l Result Performing Organization Address [facility] Co de Phone Number [place] [phone] [facility] [place] [address] * (ABNORMAL) Hemoglobin A1c (11/08/2024 9:32 AM LNA) Hgb A1C 6.4(H) 4.0 - 5.6 % Comment:Testing performed by : [address] [address] Estimated Average Glucose 137 mg/dL ARIANNA SAINI Comment: The ADA recommends reporting an estimated Average Glucose (eAG) with all Hemoglobin A1c results using the equation derived from a study of 507 normal and diabetic adults. Minority populations were underrepresented and children were not included. (Diabetes Care 31:8217-8048, 2008). The eAG is not equivalent to a fasting glucose. Testing performed by: [facility], [address] [place] [address]., [address] Blood 11/08/2024 9:32 AM LNA 11/08/2024 11:51 AM LNA us Dyan [facility] LAB BLOOD ORDERABLES Diana l Result ARIANNA SAINI [address] [facility] Department [place] [address] * Lipid panel (11/08/2024 9:32 AM LNA) Cholesterol 158 30 - 199 mg/dL Comment: Interpretive Data Ages < or = 19 years Acceptable: <170 mg/dL Borderline high: 170-199 mg/dL High: >or= 200 mg/dL Ages > or = 20 years Desirable: <200 mg/dL Borderline high: 200-239 mg/dL High: >or= 240 mg/dL Literature References: 1. Expert Panel on Integrated Guidelines for Cardiovascular Health and Risk Reduction in Children and Adolescents. Pediatrics 2011;128:S213 2. NCEP Expert Panel. Circulation 2004;110:227 Current Interpretive Data was last revised on 2018. Testing performed by: [address] [address] Triglycerides 67 <=149 mg/dL ARIANNA SAINI Comment: Interpretive Data Ages < or = 9 years Acceptable: <75 mg/dL Borderline high: 75-99 mg/dL High: >or= 100 mg/dL Ages 10 to 20 years Acceptable: <90 mg/dL Borderline high: 90-129 mg/dL High: >or= 130 mg/dL Ages > or = 20 years Desirable: <150 mg/dL Borderline high: 150-199 mg/dL High: 200-499 mg/dL Very high: >or= 499 mg/dL Literature References: 1. Expert Panel on Integrated Guidelines for Cardiovascular Health and Risk Reduction in Children and Adolescents. Pediatrics 2011;128:S213 2. NCEP Expert Panel. Circulation 2004;110:227 Current Interpretive Data was last revised on 2018. Testing performed by: [address] [address] HDL 61 >=40 mg/dL ARIANNA Comment: Interpretive Data Ages < or = 19 years Acceptable: >45 mg/dL Borderline low: 40-45 mg/dL Low: <40 mg/dL Ages > or = 20 years Desirable: >or= 60 mg/dL Low: <40 mg/dL Literature References: 1. Expert Panel on Integrated Guidelines for Cardiovascular Health and Risk Reduction in Children and Adolescents. Pediatrics 2011;128:S213 2. NCEP Expert Panel. Circulation 2004;110:227 Current Interpretive Data was last revised on 2018. Testing performed by: [address] [address] LDL, calculated 84 <=129 mg/dL ARIANNA Comment: Interpretive Data Ages < or = 19 years Acceptable: <110 mg/dL Borderline high: 110-129 mg/dL High: >or= 130 mg/dL Ages > or = 20 years Optimal: <100 mg/dL Near optimal: 100-129 mg/dL Borderline high: 130-159 mg/dL High: >160 mg/dL Calculated using the Jhoan LDL-C estimating equation. This equation was implemented on 2024. Prior to this date LDL-C was estimated using the Friedewald equation. Literature References: 1. Expert Panel on Integrated Guidelines for Cardiovascular Health and Risk Reduction in Children and Adolescents. Pediatrics 2011;128:S213 2. NCEP Expert Panel. Circulation 2004;110:227 3. Jhoan Dumas al. DUSTIN Cardiol. 2020 January 01;5(5):540-548. doi: 10.1001/jamacardio.2020.0013 Current Interpretive Data was last revised on 2024. Testing performed by: [address] [address] Non-HDL Cholesterol 97 mg/dL ARIANNA Comment: Interpretive Data Ages < or = 19 years Acceptable: <120 mg/dL Borderline high: 120-144 mg/dL High: >145 mg/dL Ages > or = 20 years When triglycerides are >200 mg/dL, Non-HDL cholesterol is a secondary target of therapy with treatment goals that are 30 mg/dL greater than the LDL cholesterol target. Literature References: 1. Expert Panel on Integrated Guidelines for Cardiovascular Health and Risk Reduction in Children and Adolescents. Pediatrics 2011;128:S213 2. NCEP Expert Panel. Circulation 2004;110:227 Current Interpretive Data was last revised on 2018. Testing performed by: [facility], [address] [place] [address]., [address] Chol/HDL ratio 3 ARIANNA Comment:Testing performed by : [facility], [address] [place] [address]., [address] Blood 11/08/2024 9:32 AM LNA 11/08/2024 11:51 AM LNA Dyan MINOR LAB BLOOD ORDERABLES Diana l Result Performing Organization Address City/State/[facility] Co de Phone Number ARIANNA [address] [facility] Department [place] [address] * MAMMOGRAPHY (01/10/2024) Mammography Normal Historical Provider HEALTH MAINTENANCE Final Result * HM PAP SMEAR WITH HPV (07/10/2022) Scribed Pap Smear w/HPV Normal Historical Provider HEALTH MAINTENANCE Final Result * (ABNORMAL) Colonoscopy (04/09/2018) Anatomical Region Laterality Modality Other Historical Provider ENDOSCOPY PROCEDURES Diana l Result from Last 3 Months or Most Recently Relevant to Health Maintenance Insurance [facility] CHOICE PLUS [facility] HMO/PPO Address: [address] [address] [facility] HMO/PPO Address: [address] [place] [address] [facility] [place] [address] CHOICE PL[facility] HMO/PPO Address: [facility] [address] [place] [address] [facility] Advance Directives For more information, please contact: [phone] Documents on File Type Date Recorded Patient Duralumin Metalworker Expl anation ADVANCE DIRECTIVE 08/04/2013 12:00 AM MIKE MURRAY WILL ADVANCE DIRECTIVE 08/04/2013 12:00 AM DILLON R OF DENTAL CHAIRSIDE ASSISTANT FINANCIAL/MEDICAL Care Teams Tool Grinder Operator Relationship Specialty Start Date End Date Dyan Cruz PA [address] [place] [address] PCP - General Family Medicine 10/29/24
--- OUTSIDE RECORDS SUMMARY | 2025-03-10 14:53 | XMS_ITS | Encounter Summary ---
Author Organization [facility] Facility Care Team Providers Care Porcelain Enameling Supervisor Name Role Phone Boby Adams MD Primary Care Provid er Dyan Cruz Primary Care Provider [phone] [phone] Encounter Details Date Type Department Care Team (Latest Contact Info) Description 04/09/2018 Orders Only MMG CLINCONV ProviderNasrin MD [address] [place] [address] Social History Tobacco Use Types Packs/Day Years Used Date Smoking Tobacco: Never Smokeless Tobacco: Never Alcohol Use Standard Drinks/Week Comments No 0 (1 standard drink = 0.6 oz pur e alcohol) Comments No Sex and Gender Information Value Date Recorded Sex Assigned at Not on file Legal Sex Female 1:55 AM LOTTERY OFFICE MANAGER Gender Identity Female 08/11/2021 12:08 PM LOTTERY OFFICE MANAGER Sexual Orientation Straight 08/11/2021 12 :08 PM LOTTERY OFFICE MANAGER Occupation Industry Job Start Date Job End Date teacher Not on file Not on file Not on file documented as of this encounter Plan of Treatment Not on file documented as of this encounter Procedures Procedure Name Priority Date/Time Associated Diagnosis Comments SCAN - PATHOLOGY 07/04/2018 12:0 0 AM CDT COLONOSCOPY - SCAN 04/09/2018 12 :00 AM CDT documented in this encounter Results * SCAN - PATHOLOGY (07/04/2018 12:00 AM CDT) Narrative 07/04/2018 12:00 AM CDT Ordered by an unspecified provider. us Historical Provider Final Res ult * COLONOSCOPY - SCAN (04/09/2018 12:00 AM CDT) Narrative 04/09/2018 12:00 AM CDT Ordered by an unspecified provider. Historical Provider [...] COVID: Suspected 07/09/2022 07/09/2022 07/09/2022 11:30 AM LOTTERY OFFICE MANAGER COVID: Suspected 08/09/2022 08/09/2022 08/09/2022 8:53 AM LOTTERY OFFICE MANAGER Influenza, adult 08/09/2022 08/09/2022 08/16/2022 3:05 AM LOTTERY OFFICE MANAGER COVID: Suspected 05/22/2023 05/22/2023 05/22/2023 4:19 PM CDT COVID19 05/22/2023 05/22/2023 06/01/2023 3:07 AM CDT COVID: Recovered Comment:Added based on recent COVID infection. 06/01/2023 07/11/2023 08/30/2023 3:[address] COVID: Suspected 07/16/2023 07/16/2023 07/16/2023 6:05 PM LOTTERY OFFICE MANAGER COVID: Suspected 07/16/2023 07/16/2023 07/17/2023 3:05 AM LOTTERY OFFICE MANAGER COVID: Suspected 07/16/2023 07/16/2023 07/17/2023 11:36 AM LOTTERY OFFICE MANAGER documented as of this encounter Care Teams Porcelain Enameling Supervisor Relationship Specialty Start Date End Date Boby Adams MD [address] [place] [address] PCP - General Family Medicine 12/31/17 10/28/24 Dyan Cruz PA [address] [place] [address] PCP - General Family Medicine 10/29/24 documented as of this encounter
--- OUTSIDE RECORDS SUMMARY | 2025-03-10 14:53 | XMS_ITS | Referral Summary ---
Author Organization [facility] Address [facility] [place] [address] Care Team Providers Care Housekeeping Cleaner Name Role Phone Dyan Cruz Primary Care Provider [phone] [phone] Encounters Date Type Department Care Team Description 01/05/2025 Results Follow-Up [address] [address] Dyan Cruz PA Extra Specimen, CFVANTAGE(R) CYSTIC FIBROSIS EXPANDED SCR Blood 12/31/2024 7:30 AM CDT Office Visit [address] [address] Dyan Cruz PA Routine adult health maintenance (Primary Dx); Controlled type 2 diabetes mellitus without complication, without long-term current use of insulin (HCC); KEVIN (generalized anxiety disorder); Screening for cystic fibrosis; Need for vaccination; Viral wart on finger from Last 3 Months Allergies No known active allergies Medications FreeStyle [...] (3 year recall), scheduled with ADRIÁN Yusuf -Last WWE: 07/10/2022 -Last Mammogram: 01/10/2024, scheduled at [facility] -Last DEXA: N/A -Last eye exam: 01/13/25 -Last MHA: N/A Assessment & Plan (12/31/2024 8:26 AM CDT): Health Maintenance: -PCV20: 07/13/2023 -Tdap vaccine: 2022 -Influenza vaccine: due in Fall -Shingles vaccine: 12/11/24 -Colonoscopy: 03/14/2022 (3 year recall), scheduled with GI Dr. Yusuf -Last WWE: 07/10/2022 -Last Mammogram: 01/10/2024, scheduled at [facility] -Last DEXA: N/A -Last eye exam: scheduled -Last MHA: N/A First dose of Shingrix administered today. She has her mammogram, colonoscopy, eye exam all scheduled. Labs reviewed today. BMI 28.0-28.9,adult 07/13/2023 Assessment & Plan (07/13/2023 8:01 AM BEET TOPPER): Encouraged to restart regular exercise routine. Continue healthy diet. Controlled type 2 diabetes m judy without complication, without long-term current use of [...] CDT): Assessment & Plan (07/13/2023 8:00 AM BEET TOPPER): Chronic. Controlled A1c at goal of less than 7. Blood sugars have increased slightly. Advised patient to continue monitoring and notify for persistent fasting blood sugars above 130 or 2 hour postprandial blood sugars above 150. - continue metformin 500 twice daily and Jardiance 10 mg daily - schedule annual appointment with Dr. 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 12/31/2024 Social History Tobacco Use Types Packs/Day Years [...] on file Legal Sex Female 1:55 AM BEET TOPPER Gender Identity Female 08/11/2021 12:08 PM BEET TOPPER Sexual Orientation Straight 08/11/2021 12 :08 PM BEET TOPPER Occupation Industry Job Start Date Job End Date teacher Not on file Not on file Not on file Last Filed Vital Signs Vital Sign Reading [...] 12/31/2024 7:33 AM CDT Plan of Treatment Not on file Medical Devices Implanted Type Area Belt Cutter Device Identifier Shelf Expiration Date Model / Serial / Lot Fusion Spine Cervical Procedures Procedure Name Priority Date/Time Associated Diagnosis Comments DIABETES EYE EXAM Routine 01/13/2025 2:42 PM CDT EXTRA SPECIMEN Routine 01/12/2025 1:08 PM CDT CFVANTAGE(R) CYSTIC FIBROSIS EXPANDED SCR Routine 01/12/2025 1:08 PM CDT Screening for cystic fibrosis EGFR Routine 11/08/2024 9:32 AM BEET TOPPER Controlled type 2 diabetes mellitus without complication, without long-term current use of insulin (HCC) HEMOGLOBIN A1C Routine 11/08/2024 9:32 AM BEET TOPPER Controlled type 2 diabetes mellitus without complication, without long-term current use of insulin (HCC) LIPID PANEL Routine 11/08/2024 9:32 AM BEET TOPPER Controlled type 2 diabetes mellitus without complication, without long-term current use of insulin (HCC) ALBUMIN CREATININE RATIO, URINE Routine 11/08/2024 9:32 AM BEET TOPPER Controlled type 2 diabetes mellitus without complication, without long-term current use of insulin (HCC) MAMMOGRAPHY Routine 01/10/2024 PAP SMEAR WITH HPV Routine 07/10/2022 COLONOSCOPY Routine 03/14/2022 4:00 PM CDT from Last 3 Months or Most Recently Relevant to Health Maintenance Results * DIABETES EYE EXAM (01/13/2025 2:42 PM CDT) SCRIBED DIABETIC DILATED EYE EXAM Normal us Historical Provider HEALTH MAINTENANCE Final Result * Extra Specimen (01/12/2025 1:08 PM CDT) Extra Tube Received [facility] Comment: An extra specimen was received with no test requested. The specimen will be maintained in storage in case additional testing is needed. Please call the client service department for further assistance. Specimen Type Received 2Serum Separator (SST) [facility] Comment: NO COLLECTION DATE RECEIVED. WE HAVE USED THE DATE THE SPECIMEN WAS RECEIVED BY THIS LABORATORY THE COLLECTION DATE. IF THIS IS INCORRECT, PLEASE CONTACT CLIENT SERVICES. PHONE NUMBER: [phone] 01/04/2025 4:2 3 AM CDT Dyan MINOR LAB BLOOD ORDERABLES Diana frye Result [facility] [address] [address] [address] * (ABNORMAL) CFVANTAGE(R) CYSTIC FIBROSIS EXPANDED SCR Blood (01/12/2025 1:08 PM CDT) Tumor type drugs #8 NG [facility], Clinical trials #6 POSITIVE( A) [facility], Comment:HETEROZYGOUS FOR THE delta F508 MUTATION test, interpretation SEE NOTE [facility], Comment: This individual has one copy of [...] clinical information reviewed by Jeremiah Thomas, PhD. [facility]. test, additional SEE NOTE [facility], Comment: This assay detects the CF mutations listed below, including the twenty-three core mutations recommended by the [employer] (ACMG) and the [place] [employer] Obstetricians and Gynecologists (ACOG) for [...] Health care providers, please contact your local [facility] genetic counselor or call at [employer] ([phone]) for assistance with interpretation of these results. DIAGNOSIS: SEE NOTE Nasim Alford/Dione silva [facility], Comment: M1V (c.1A>G), CFTRdele2,3, Q39X (c.115C>T), 296+2T>A [...] (c.595C>T), P205S (c.613C>T), L206W (c.617T>G), Q220X (c.658C>T), 584wmz01 (c.391wjd48), 935delA (c.803delA), 936delTA (c.805delAT), C103imf (c.933delCTT), 1078delT (c.948delT), G330X (c.988G>T), R334W (c.1000C>T), I336K (c.1007T>A), T338I (c.1013C>T), S341P (c.1021T>C), 1154insTC (c.1022insTC), 1161delC (c.1029delC), R347P (c.1040G>C), R347H (c.1040G>A), R352Q (c.1055G>A), 1213delT (c.1081delT), 1248+1G>A (c.1116+1G>A), 1259insA (c.1127insA), 1288insTA (c.1153insAT), W401X (c.1202G>A or c.1203G>A), 1341+1G>A (c.1209+1G>A), 8545yhb0 (c.1329insAGAT), A455E (c.1364C>A), 1525-1G>A (c.1393-1G>A), S466X (c.1397C>A or c.1397C>G), L467P (c.1400T>C), 1548delG (c.1418delG), G480C (c.1438G>T), S489X (c.1466C>A), S492F (c.1475C>T), 1609delCA (c.1477delCA), Q493X (c.1477C>T), H606mgt (c.1519delATC), D937qlc (c.1521delCTT), 1677delTA (c.1545delTA), V520F (c.1558G>T), C524X (c.1572C>A), Q525X (c.1573C>T), 1717-1G>A (c.1585-1G>A), 1717-8G>A (c.1585-8G>A), G542X (c.1624G>T), S549R (c.1645A>C or c.1647T>G), S549N (c.1646G>A), G551D (c.1652G>A), Q552X (c.1654C>T), R553X (c.1657C>T), A559T (c.1675G>A), R560K (c.1679G>A), R560T (c.1679G>C), 1811+1.6kbA>G (c.1679+1.6kbA>G), 1812-1G>A (c.1680-1G>A), P574H (c.1721C>A), D579G (c.1736A>G), E585X (c.1753G>T), 1898+1G>T(c.1766+1G>T), 1898+1G>A (c.1766+1G>A), 1898+3A>G (c.1766+3A>G), 1898+5G>T (c.1766+5G>T), 2043delG (c.1911delG), 9763gwv0>A (c.8613snr9tlfA),4376dbh31koi5 (c.5122bll95hucNAWUZ), 2108delA (c.1975delA), 2143delT (c.2011delT), 2183AA>G (c.2051delAAinsG), 2184insA (c.2052insA), 2184delA(c.2052delA), R709X (c.2125C>T), K710X (c.2128A>T), 2307insA (c.2175insA),L732X (c.2195T>G), 2347delG (c.2215delG), R764X (c.2290C>T), 2585delT (c.2453delT), E822X (c.2464G>T), 2622+1G>A (c.2490+1G>A), E831X (c.2491G>T),W846X (c.2537G>A or c.2538G>A), R851X (c.2551C>T), 2711delT (c.2583delT), 2789+5G>A (c.2657+5G>A), Q890X (c.2668C>T), 2869insG (c.2737insG), L927P (c.2780T>C), S945L (c.2834C>T), 3007delG (c.2875delG), G970R (c.2908G>C), 3120G>A(c.2988G>A), 3120+1G>A (c.2988+1G>A), 3121-1G>A (c.2989-1G>A), 3171delC (c.3039delC), 0093agr1 (c.3067delATAGTG), 3272-26A>G (c.3140-26A>G), B4888A (c.3194T>C), O5490T (c.3196C>T), E0425H (c.3197G>A), Y9939C (c.3230T>C), G2499P (c.3266G>A), P7785F (c.3276C>A or c.3276C>G), W2590M (c.3278T>C), J8511F (c.33 2T>A), K4134M (c.3310G>T), S4756Y (c.3382A>T), G3596I (c.3435G>A), A6004R (c.3472C>T), L9175Q (c.3484C>T), 3659delC (c.3528delC), 7303qdf1 (c.3535delACCA), Z9070A (c.3587C>G), Q3169N (c.3611G>A or c.3612G>A), 3791delC (c.3659delC), 3821delT (c.3691delT), U9325F (c.3700A>G), X6757W (c.3712C>T), 3849+10kbC>T (c.3717+61754G>T), C9903C (c.3731G>A),3876delA (c.3744delA), Z5084Z (c.3752G>A), U1590D (c.3764C>A), 3905insT (c.3773insT), C3523E (c.3846G>A), C9339C (c.3848G>T), 4005+1G>A (c.3873+1G>A), 4016insT (c.3884insT), L8859G (c.3909C>G), C7891P (c.3937C>T), HCIWeyum70,23, 4209TGTT>AA (c.4077delTGTTinsAA), 4382delA (c.4251d lA) This test was developed and its analytical performance characteristics have been determined by [facility]. It has not been cleared or approved by the FDA. This assay has been validated pursuant to the CLIA regulations and is used for clinical purposes. For additional information, please refer to http://education.Lockit[employer].Aero Glass/faq/HZM315 (This link is being provided for information/educational purposes only.) Blood 01/04/2025 4:2 3 AM CDT Dyan MINOR LAB MICROBIOLOGY - GENERA L ORDERABLES Final Result [facility], [address] [place] [address] * eGFR (11/08/2024 9:32 AM BEET TOPPER) eGFR >90 >=60 mL/min/1. 73 m2 Comment: [...] was last reviewed 2021. Testing performed by: [address] [address] Blood 11/08/2024 9:32 AM BEET TOPPER 11/08/2024 11:51 AM BEET TOPPER Dyan MINOR LAB BLOOD ORDERABLES Diana l Result ARIANNA SAINI [address] [facility] Department [place] [address] * Albumin Creatinine Ratio, Urine (11/08/2024 9:32 AM BEET TOPPER) Albumin Ur <12.0 mg/L Comment: Interpretive Data No reference range established. Current interpretive data was last revised 2019. Testing performed by: [address] [address] Creatinine Ur 116.0 mg/dL ARIANNA SAINI Comment: Interpretive Data No reference range established. Current interpretive data was last revised 2019. Testing performed by: [address] [address] Albumin Creatinine Ratio, Ur <10 1 - 29 mg/g ARIANNA Comment:Testing performed by : [address] [address] Urine 11/08/2024 9:32 AM BEET TOPPER 11/08/2024 10:09 AM BEET TOPPER Dyan MINOR LAB URINE ORDERABLES Diana l Result Performing Organization Address [facility] Co de Phone Number [address] [email or web address] [address] * (ABNORMAL) Hemoglobin A1c (11/08/2024 9:32 AM BEET TOPPER) Hgb A1C 6.4(H) 4.0 - 5.6 % Comment:Testing performed by : [address] [address] Estimated Average Glucose 137 mg/dL ARIANNA Comment: The ADA recommends reporting an estimated Average Glucose (eAG) with all Hemoglobin A1c results using the equation derived from a study of 507 normal and diabetic adults. Minority populations were underrepresented and children were not included. (Diabetes Care 31:5056-5344, 2008). The eAG is not equivalent to a fasting glucose. Testing performed by: [address] [address] Blood 11/08/2024 9:32 AM BEET TOPPER 11/08/2024 11:51 AM BEET TOPPER Dyan MINOR LAB BLOOD ORDERABLES Diana l Result Performing Organization Address City/[facility] Co de Phone Number [address] [email or web address] [address] * Lipid panel (11/08/2024 9:32 AM BEET TOPPER) Pathologist [facility] Cholesterol 158 30 - 199 mg/dL Comment: [...] last revised on 2018. Testing performed by: [address] [address] Triglycerides 67 <=149 mg/dL ARIANNA Comment: Interpretive Data Ages < [...] last revised on 2018. Testing performed by: [address] [address] HDL 61 >=40 mg/dL ARIANNA Comment: Interpretive [...] last revised on 2018. Testing performed by: [address] [address] LDL, calculated 84 <=129 mg/dL ARIANNA Comment: [...] NCEP Expert Panel. Circulation 2004;110:227 3. Jhoan San et al. DUSTIN Cardiol. 2020 January 01;5(5):540-548. doi: 10.1001/jamacardio.2020.0013 Current Interpretive Data was last revised on 2024. Testing performed by: [address] [address] Non-HDL Cholesterol 97 mg/dL ARIANNA Comment: Interpretive [...] last revised on 2018. Testing performed by: [address] [address] Chol/HDL ratio 3 BANNERANASTASIIA Comment:Testing performed by : [address] [address] Blood 11/08/2024 9:32 AM BEET TOPPER 11/08/2024 11:51 AM BEET TOPPER us Dyan MINOR LAB BLOOD ORDERABLES Diana uday Result ARIANNA MH [address] [facility] Department [place] [address] * MAMMOGRAPHY (01/10/2024) Mammography Normal Historical Provider HEALTH MAINTENANCE Final Result * HM PAP SMEAR WITH HPV (07/10/2022) Scribed Pap Smear w/HPV Normal Historical Provider HEALTH MAINTENANCE Final Result * (ABNORMAL) Colonoscopy (04/09/2018) Anatomical Region Laterality Modality Other Historical Provider ENDOSCOPY PROCEDURES Diana l Result from Last 3 Months or Most Recently Relevant to Health Maintenance Insurance [facility] HMO/PPO Address: [facility] [id number] [place] [address] [facility] HMO/PPO Address: [address] [facility] HMO/PPO Address: [address] Advance Directives For more information, please contact: [phone] Documents on File Type Date Recorded Patient Vb Net Programmer Expl anation ADVANCE DIRECTIVE 08/04/2013 12:00 AM MIKE MURRAY WILL ADVANCE DIRECTIVE 08/04/2013 12:00 AM DILLON R OF TUBE TURNER FINANCIAL/MEDICAL Care Teams Housekeeping Cleaner Relationship Specialty Start Date End Date Dyan Cruz PA [address] [place] [address] PCP - General Family Medicine 10/29/24
--- OUTSIDE RECORDS SUMMARY | 2025-03-10 14:53 | XMS_ITS | Encounter Summary ---
Author Organization [facility] Facility Care Team Providers Care Roller [employer]illet Mill Name Role Phone Unknown, Notinfile Primary Care Provider Unavail Boby Bonilla MD Primary Care Provid er Dyan Cruz Primary Care Provider [phone] Encounter Details Date Type Department Care Team (Latest Contact Info) Description 12/19/2017 Orders Only [facility]G CLINCONV ProviderNasrin MD [address] [place] [address] Social History Tobacco Use Types Packs/Day Years Used Date Smoking Tobacco: Never Assessed Comments Unknown Sex and Gender Information Value Date Recorded Sex Assigned at Not on file Legal Sex Female 1:55 AM CLICKING MACHINE OPERATOR Gender Identity Female 08/11/2021 12:08 PM CLICKING MACHINE OPERATOR Sexual Orientation Straight 08/11/2021 12 :08 PM CLICKING MACHINE OPERATOR documented as of this encounter Plan of Treatment Not on file documented as of this encounter Procedures Procedure Name Priority Date/Time Associated Diagnosis Comments SCAN - LABS 12/19/2017 12:00 AM CDT CARDIOLOGY REPORT 12/19/2017 12: 00 AM CDT CARDIOLOGY REPORT 12/19/2017 12: 00 AM CDT documented in this encounter Results * SCAN - LABS (12/19/2017 12:00 AM CDT) Narrative 12/19/2017 12:00 AM CDT Ordered by an unspecified provider. Historical Provider Final Res ult * CARDIOLOGY REPORT (12/19/2017 12:00 AM CDT) Anatomical Region Laterality Modality Other Narrative 12/19/2017 12:00 AM CDT Ordered by an unspecified provider. [facility] Provider CV CARDIAC SERVICES PROCE DURES Final Result * CARDIOLOGY REPORT (12/19/2017 12:00 AM CDT) Anatomical Region Laterality Modality Other Narrative 12/19/2017 12:00 AM CDT Ordered by an unspecified provider. [facility] Provider CV CARDIAC SERVICES PROCE DURES Final Result documented in this encounter Visit Diagnoses Not on filedocumented in this encounter Additional Health Concerns Infection Onset Date Last Indicated Resolved Time COVID: Suspected 03/17/2021 03/17/2021 03/17/2021 10:59 PM CDT COVID19 03/17/2021 03/17/2021 03/31/2021 3:05 AM CDT COVID: Recovered Comment:Added based on recent COVID infection. 03/31/2021 04/04/2021 07/29/2021 3:[address] COVID: Suspected 07/09/2022 07/09/2022 07/09/2022 11:30 AM CLICKING MACHINE OPERATOR COVID: Suspected 08/09/2022 08/09/2022 08/09/2022 8:53 AM CLICKING MACHINE OPERATOR Influenza, adult 08/09/2022 08/09/2022 08/16/2022 3:05 AM CLICKING MACHINE OPERATOR COVID: Suspected 05/22/2023 05/22/2023 05/22/2023 4:19 PM CDT COVID19 05/22/2023 05/22/2023 06/01/2023 3:07 AM CDT COVID: Recovered Comment:Added based on recent COVID infection. 06/01/2023 07/11/2023 08/30/2023 3:[address] COVID: Suspected 07/16/2023 07/16/2023 07/16/2023 6:05 PM CLICKING MACHINE OPERATOR COVID: Suspected 07/16/2023 07/16/2023 07/17/2023 3:05 AM CLICKING MACHINE OPERATOR COVID: Suspected 07/16/2023 07/16/2023 07/17/2023 11:36 AM CLICKING MACHINE OPERATOR documented as of this encounter Care Teams [employer] Relationship Specialty Start Date End Date Unknown, Notinfile PCP - General 11/02/17 12/30/17 Boby Adams MD [address] [place] [address] PCP - General Family Medicine 12/31/17 10/28/24 Dyan Cruz PA [address] [place] [address] PCP - General Family Medicine 10/29/24 documented as of this encounter
--- OUTSIDE RECORDS SUMMARY | 2025-03-10 14:53 | XMS_ITS | Data Portability ---
Author Organization [facility] [facility], [id number] Address [address] [facility] [place] [address] Assessment No assessment recorded. Plan of Treatment Reminders Order Date Submit Date Provider Last Modified By Organization Details Last Modified Time Details Appointments None recorded. Lab rapid flu (A+B) 2022 023 [id number] , [address], [place], [address], 3 14:43:43 SARS CoV 2 (COVID-19) Ag, QL, [place], upper respiratory specimen 2022 023 [id number] , [address], [place], [address], 3 14:43:47 Referral None recorded. Procedures None recorded. Surgeries None recorded. Imaging None recorded. Medication Orders Augmentin 500 mg-125 mg tablet 2022 [facility] #[id number], [address], [place], [id number], 3 14:43:48 Flonase Allergy Relief 50 mcg/actuati on nasal spray,suspe nsion 2022 023 [facility] #[id number], [address], [place], [id number], 3 14:45:35 Patient TargetsNo targets recorded. Patient Instructions Encounter Date Encounter Id Patient Instructions Last Modified By Organization Details Last Modified Time 08/28/2023 [id number] Acute Sinusitis: Care Instructions Not available 08/28/2023 14:43:40 Take an over the counter PROBIOTIC as directed while taking antibiotic. Fluids/rest/you may also take an over the counter decongestant such as MUCINEX OR SUDAFED as directed next 3-4 days. Follow up with your PCP if symptoms do not resolve within 5-7 days, follow up sooner if any worsening symptoms develop in interim. Not available 08/28/2023 14:43:17 Discussed viral versus bacterial infections/advise d close f/u with pcp if symptoms persist-patient understanding, comfortable with treatment/plan. Not available 08/28/2023 15:11:57 Reason for Referral None Reported. Results Created Date Observation Date Name Description Value Unit Range Abnormal Flag Note LastModifiedBy Organization Detail LastModifiedTime 08/28/2008/28/2023 rapid flu (A+B) Unknown Analyte negati ve Not Available [id number], [place], [address], 08/28/2023 14:18:56 08/28/20 23 08/28/2023 rapid flu (A+B) Unknown Analyte negati ve Not Available [id number], [place], [address], 08/28/2023 14:18:56 08/28/20 23 08/28/2023 rapid flu (A+B) Unknown Analyte yes Not Available [id number], [place], [address], 08/28/2023 14:18:56 08/28/20 23 08/28/2023 SARS CoV 2 (COVI D-19) Ag, QL, [place], upper respi rator y speci men Unknown Analyte negati ve Not Available [id number], [place], [address], 08/28/2023 14:18:45 Result Notes None recorded. Problems Name Problem SNOMED Code Status Onset Date Resolution Date Notes Provider Name and Address Organization Details Recorded Time Diabetes mellitus 52094311 Active [facility] - [facility] 3 14:16:47 Problem Notes None recorded. Medical Equipment None Reported. Allergies No known drug allergies Medications Name Sig Start Date Stop Date Status Note LastModified by Organization Details LastModified Time cyclobenzap rine 10 mg tablet 08/28 completed Not Available Not Available Not Available fluconazole 150 mg tablet TAKE 1 TABLET BY MOUTH NOW. REPEAT IN 7 DAYS IF SYMPTOMS PERSIST active Not Available Not Available No t Available lidocaine 5 % topical patch APPLY 1 PATCH TO PAINFUL AREA ONCE DAILY. LEAVE ON FOR 12 HOURS THEN 12 HOURS OFF active Not Available Not Available No t Available diclofenac sodium 75 mg tablet,marquis yed release 08/28 completed Not Available Not Available Not Available methylpredn isolone 4 mg tablets in a dose pack FOLLOW PACKAGE DIRECTION S 08/28 completed Not Available Not Available Not Available metformin ER 500 mg tablet,exte nded release 24 hr active Not Available Not Available Not Available Augmentin 500 mg-125 mg tablet Take 1 tablet 3 times a day by oral route with meal(s) for 10 days. 2022 active Not Available Not Available Not Avai lable amoxicillin 875 mg-potassiu m clavulanate 125 mg tablet TAKE 1 TABLET BY MOUTH TWICE DAILY FOR 10 DAYS 08/28 completed Not Available Not Available Not Available bupropion HCl XL 150 mg 24 hr tablet, extended release active Not Available Not Available Not Available FreeStyle Lite Strips active Not Available Not Available Not Available Jardiance 10 mg tablet active Not Available Not Available Not Available Flonase Allergy Relief 50 mcg/actuati on nasal spray,suspe nsion [place] 1 spray twice a day by intranasa l route. 2022 active Not Available Not Available Not Avai lable Flowflex COVID-19 Antigen Home Test kit active Not Available Not Available Not Available Vitals Date Recorded Body height Body mass index (BMI) Body weight Oxygen saturation Oxygen saturation in Arterial blood by Pulse oximetry Heart rate Respiratory rate Body temperature Systolic And Diastolic Provider Name and Address Organization Details Last Updated DateTime 3 175.26 cm 27.2 kg/m2 57540 g 98 % 98 % 101 /min 16 /min 98.1 [degF] 128/62 mm[Hg] Leah CherryLisa MINOR - [facility] 14:14:39 Social History Question Answer Notes LastModified by Organizat ion Details LastModified Time Tobacco Smoking Status Never Smoker Leah Mancia [place] - [facility] 08/28/2023 14:18:02 Have You Had A Flu Shot This Season? Yes Information not available 08/28/2023 If No, Would You Like A Flu Shot Today? No Information not available 08/28/2023 Have You Had Direct Contact, Or Contact During Intimacy, With Monkeypox Rash, Scabs, Or Body Fluids From A Person With Monkeypox? No Information not available 08/28/2023 Have You Recently Traveled Abroad? No Information not available 08/28/2023 Sex: Unknown Functional Status Question Answer Note LastModified by Organizat ion Details LastModified Time Do you use any illicit or recreational drugs? No Information not available 08/28/2023 Do you or have you ever used any other forms of tobacco or nicotine? No Information not available 08/28/2023 What is your level of alcohol consumption? None Information not available 08/28/2023 Mental Status None recorded. Family History Nothing Reported Notes:High blood pressure ca ncer Medical History No medical history recorded. Gynecological History Statement/Question Response Is there any chance of ? No LMP N/A Obstetrics History GPAL:G 0 P 0 0 0 0 Past Encounters Encounter ID Performer Location Encounter Start Date Encounter Closed Date Diagnosis/Indication Diagnosis SNOMED-CT Code Diagnosis ICD10 Code Diagnosis Note [id number] Madyson Adrian PA-C [address] [place] [address] 08/28/2023 13:33:57 08/28/2023 14:45:55 Exposure to SARS-CoV-2 419618743 Z20.822 Acute sinusitis 35738746 J01.90 Health Concerns Section Related Observation LastModified by Organization Detai ls LastModified Time None Recorded Concern Status LastModified by Organization Details LastModified Time None Recorded Advance Directives Directive None Recorded Payers Insurance Date Sequence Insurance Name Policy Number Policy Agee Covered Member ID Agee Member ID Guarantor Name 08/28/[address] [facility] [id number] Colleen Perdomo [id number] Colleen Perdomo Notes Date Note Type Note Provider Name and Address Organization Details Recorded Time 08/28/2023 text/html Sinus congestion/drain age x 1 week, worsening symptoms the past few days. No h/o recurrent infections. No relief with otc medications. Madyson Adrian PA-C [address] [place] [address] [place], [address], [place] - [facility] 08/28/2023 15:12:11 OBGyn Episode No OBEpisode recorded.
--- OUTSIDE RECORDS SUMMARY | 2025-03-10 14:53 | XMS_ITS | Clinical Summary ---
Author Organization [facility] Address [facility] [place] [address] Care Team Providers Care Mutuel Cashier Name Role Phone Boby Adams MD Primary Care Provider + [phone] Allergies No known active allergies Medications empagliflozin (JARDIANCE) 10 MG tablet Take 1 tablet (10 mg total) by mouth daily. Active metFORMIN (GLUCOPHAGE) 500 MG tablet Take 1 tablet (500 mg total) by mouth 2 (two) times daily with meals. Active buPROPion (WELLBUTRIN) 75 MG tablet Take 1 tablet (75 mg total) by mouth 2 (two) times daily. Active ondansetron (ZOFRAN-ODT) 4 MG disintegrating tablet Take 1 tablet (4 mg total) by mouth every 8 (eight) hours as needed for Nausea. 20 tablet 4 Active dicyclomine (BENTYL) 20 MG tablet Take 1 tablet (20 mg total) by mouth every 6 (six) hours. 20 tablet 4 Active Family History Medical History Relation Comments Cancer Father Diabetes Mother Hypertension Mother Relation Status Comments Father Mother Social History Tobacco Use Types Packs/Day Years Used Date Smoking Tobacco: Never Smokeless Tobacco: Never Tobacco Cessation:Counseling Given: Not Answered Alcohol Use Standard Drinks/Week Comments No 0 (1 standard drink = 0.6 oz pur e alcohol) AUDIT-C Answer Date Recorded Frequency of Alcohol Consumption Never 07/18/2019 Average Number of Drinks Not on file 019 Frequency of Binge Drinking Not on file 07/04 Comments No Sex and Gender Information Value Date Recorded Sex Assigned at Not on file Legal Sex Female 5:00 PM CDT Gender Identity Not on file Sexual Orientation Not on file Last Filed Vital Signs Vital Sign Reading Time Taken Comments Blood Pressure 128/65 06/22/2024 11:20 AM CDT Pulse 95 06/22/2024 11:20 AM CDT Temperature 37.1 C (98.7 F) 06/22/2024 11:20 AM CDT Respiratory Rate 18 06/22/2024 11:20 AM CDT Oxygen Saturation 96% 06/22/2024 11:20 AM CDT Inhaled Oxygen Concentration - - Weight 83.5 kg (184 lb) 06/22/2024 11:20 AM CDT Height 175.3 cm (5' 9) 06/22/2024 11:20 AM CDT Body Mass Index 27.17 06/22/2024 11:20 AM CDT Plan of Treatment Health Maintenance Due Date Last Done Comments Cervical Cancer Screening Pap Smear (Age 30 to 64) Every 3 Years 1973 Colorectal Cancer Screening Colonoscopy (10 Years) 1973 Annual Physical 1976 Hepatitis C 1991 Hepatitis B Vaccines (1 of 3 - 19+ 3-dose series) 1992 Cervical Cancer Screening Pap with HPV Testing (Age 30 to 64) Every 5 Years 2003 Cervical Cancer Screening with HPV 2003 Mammogram Screening 12/24/2014 12/24/2012 Zoster Vaccines (1 of 2) 2023 COVID-19 Vaccine ( season) 2024 06/18/2023, 10/03/2021, 11/12/2020, Additional history exists DTaP, Tdap and Td Vaccines (3 - Td or Tdap) 04/03/2033 04/03/2023, 04/07/2014, 02/16/2004 Pneumococcal Vaccine: 50+ Years Completed 07/13/2023 Meningococcal B Vaccine Aged Out No l onger eligible based on patient's age to complete this topic Meningococcal Vaccine Aged Out No kane shane eligible based on patient's age to complete this topic RSV Immunizations Under 20 Months Aged Out No longer eligible based on patient's age to complete this topic Insurance [facility] Care Teams Mutuel Cashier Relationship Specialty Start Date End Date Boby Adams MD [address] [place] [address] PCP - General 12/12/14
== END 2025-03-10 14:50 | disposition home or self-care (01) ==
LOC: ANHIMG 14:50
PROVIDERS: PCP Family Medicine; Visit Provider Obstetrics & Gynecology
DX: Z12.31 Encounter for screening mammogram for malignant neoplasm of breast (principal)
CPT/HCPCS: 77063; 77067